=== PATIENT | male | born 1960 | race Caucasian/White ===

== ENCOUNTER → 2017-06-13 | Outpatient (CLI) | payer OTHER ==
[~2017-06-13] VITALS: Ht 190.5 cm; Wt 131.5 kg
[~2017-06-13] MED LIST: CARDIZEM CD240 MG PO; XARELTO20 MG PO; ZOCOR40 MG PO
--- NOTE | ~2017-06-13 | S ---
[facility] [address] [place] [address] SURGICAL PATH RPT PROCEDURE Name: OZZY NGUYỄN Room #: REG MOSHE Alonso#: [id number] Admission: 06/13/17 Date of : 58 Discharge: Report #: [id number] Path Case #: [id number] PATHOLOGY REPORT DRAFT COLLECTION DATE: 06/13/2017 RECEIVED DATE: 06/13/2017 SPECIMEN(S) RECEIVED: A.Polyp at ascending colon B.Bx of submucosal cecal mass
--- NOTE | ~2017-06-13 | P ---
[facility] [place] [address] PROCEDURE REPORT Name: DELMAOZZY Room #: REG Kamaljit Alonso#: [id number] Admission: 06/13/17 Attend Phys: Derick Méndez Discharge: Date of : 58 Report #: [id number] THIS REPORT FOR: //name// CC: Derick Sexton DO DATE OF SERVICE: 06/13/2017 PROCEDURE PERFORMED: Colonoscopy with biopsies. HISTORY OF PRESENT ILLNESS: The patient is a 56-year-old male who underwent a colonoscopy in 2012. Several polyps were removed including a large pedunculated polyp in the sigmoid colon. He is here for followup. There is no family history of colon cancer. He denies any symptoms. DESCRIPTION OF PROCEDURE: The risks and benefits of the procedure were explained to the patient, those risks including but not limited to bleeding, perforation, the risk of sedation. He understood these risks and gave informed consent. Sedation was given using propofol per anesthesia. Next, a digital rectal exam was initially performed, which was normal. Next, using a standard eReceiptsinon colonoscope, the scope was placed in the patient's anus and advanced under direct vision to the cecum. The overall prep was good. In the cecum, there appears to be a submucosal lipoma. Biopsies were obtained, otherwise normal. Ileocecal valve was normal. In the ascending colon, a 5 mm sessile polyp was seen. This was removed with cold forceps. The transverse and descending colon were normal. Multiple small diverticula were noted in the sigmoid colon, no evidence of inflammation, otherwise normal. The rectal mucosa was normal. On retroflexion, no abnormalities were seen. The scope was then withdrawn and the procedure terminated. The patient tolerated the procedure well. IMPRESSION: 1. Small colonic polyp. 2. 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 3. External hemorrhoids. 4. Otherwise, normal colonoscopy. RECOMMENDATIONS: 1. Await biopsy results. 2. If polyp is hyperplastic, repeat in 10 years; if adenomatous polyp, repeat in [address] [address] PROCEDURE REPORT Name: OZZY NGUYỄN Room #: JOSÉ MIGUEL Alonso#: [id number] Admission: 06/13/17 Attend Phys: Derick Méndez Discharge: Date of : 58 Report #: [id number] Thank you for allowing me to participate in his care. <ELECTRONICALLY SIGNED> By: Derick Gayr MD 06/14/17 0916 [id number] Derick Gary MD /nt
== END | disposition home or self-care (01) ==
LOC: GI 07:36
DX: Z09 Encounter for follow-up examination after completed treatment for conditions other than malignant neoplasm (principal); K63.5 Polyp of colon; K63.89 Other specified diseases of intestine; K64.4 Residual hemorrhoidal skin tags; I48.91 Unspecified atrial fibrillation; Z86.010 Personal history of colon polyps; Z87.891 Personal history of nicotine dependence; Z86.73 Personal history of transient ischemic attack (TIA), and cerebral infarction without residual deficits; Z98.890 Other specified postprocedural states; Z79.899 Other long term (current) drug therapy

== ENCOUNTER → 2019-11-24 | Outpatient (CLI) | payer OTHER | LOC: SJCVCIMAG 09-14 12:31 | DX: I08.1 Rheumatic disorders of both mitral and tricuspid valves (principal); I48.91 Unspecified atrial fibrillation; D68.59 Other primary thrombophilia; E78.00 Pure hypercholesterolemia, unspecified; E78.5 Hyperlipidemia, unspecified; Z82.49 Family history of ischemic heart disease and other diseases of the circulatory system; Z79.899 Other long term (current) drug therapy; Z86.73 Personal history of transient ischemic attack (TIA), and cerebral infarction without residual deficits; Z87.891 Personal history of nicotine dependence ==

== ENCOUNTER → 2021-03-16 | Outpatient (CLI) | payer OTHER | LOC: CAT 11:17 | PROVIDERS: ATTEND Internal Medicine Cardiovascular Disease | DX: Z13.6 Encounter for screening for cardiovascular disorders (principal); E78.00 Pure hypercholesterolemia, unspecified; I25.10 Atherosclerotic heart disease of native coronary artery without angina pectoris ==

== ENCOUNTER → 2021-05-24 | Outpatient (CLI) | payer OTHER | LOC: SJCVCIMAG 09:26 | PROVIDERS: ATTEND Internal Medicine Cardiovascular Disease | DX: I08.1 Rheumatic disorders of both mitral and tricuspid valves (principal); I11.9 Hypertensive heart disease without heart failure ==